=== PATIENT | male | born 1990 | race American Indian/Alaskan Native ===

== ENCOUNTER 2018-10-10 14:57 | Emergency (ER) | payer SELFPAY ==
[2018-10-10 15:11] VITALS: BP 132/83
[2018-10-10 16:23] LABS: Color,Urine Yellow (Yellow)
--- NOTE | 2018-10-10 16:23 | Emergency Department Report ---
ED Dizziness HPI - General Chief Complaint: Back Pain/Injury Stated Complaint: CHEST PAIN/HEADACHE/LOWER BACK Time Seen by Provider: 10/10/18 15:54 Source: patient Mode of arrival: Ambulatory Limitations: No Limitations - History of Present Illness Initial Comments: Mr. Moreno is a very pleasant healthy 28-year-old male who has had chest pain lightheadedness and fatigue for the last 2 months. He's had intermittent mild left sided chest pain nondescript quality. He also has mild lower back pain. +frequent urination. 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 He also smokes one pack of cigarettes per day. He drinks too many caffeinated sports drinks according to his report. He drinks a fifth of alcohol every other day. Family history includes 2 grandfathers of lung cancer. No known history of diabetes. He has worked ten-day straight days including 15 hour work days. MD Complaint: lightheadedness -: Gradual, month(s) (2) Timing: gradual onset Description: lightheadedness Severity: mild Improves With: rehydration, rest Associated Symptoms: chest pain, malaise - Related Data Allergies Allergy/AdvReac Type Severity Reaction Status Date / Time No Known Allergies Allergy Verified 10/10/18 15:07 ED Review of Systems ROS: Stated complaint: CHEST PAIN/HEADACHE/LOWER BACK Other details as noted in HPI Comment: All other systems reviewed and negative Constitutional: malaise. denies: fever Cardiovascular: chest pain Musculoskeletal: back pain ED Past Medical Hx - Past Medical History Previous Medical History?: No - Surgical History Past Surgical History?: No - Family History Family history: cancer - Social History Smoking Status: Current Every Day Smoker Substance Use Type: Alcohol ED Physical Exam - General Limitations: No Limitations General appearance: alert, in no apparent distress - Head Head exam: Present: atraumatic, normocephalic - Eye Eye exam: Present: normal appearance - ENT ENT exam: Present: mucous membranes moist - Neck Neck exam: Present: normal inspection, full ROM. Absent: tenderness, meningismus - Respiratory Respiratory exam: Present: normal lung sounds bilaterally. Absent: respiratory distress, wheezes, rales - Cardiovascular Cardiovascular Exam: Present: regular rate, normal rhythm, normal heart sounds. Absent: systolic murmur, diastolic murmur, rubs, gallop - GI/Abdominal GI/Abdominal exam: Present: soft, normal bowel sounds. Absent: distended, tenderness, guarding, rebound - Rectal Rectal exam: Present: deferred - Extremities Exam Extremities exam: Present: normal inspection - Back Exam Back exam: Present: normal inspection - Neurological Exam Neurological exam: Present: alert, oriented X3 - Psychiatric Psychiatric exam: Present: normal affect, normal mood - Skin Skin exam: Present: warm, dry, intact, normal color. Absent: rash ED Course Vital Signs 10/10/18 15:07 Temperature 98.2 F Pulse Rate 88 Respiratory 18 Rate Blood Pressure 132/83 O2 Sat by Pulse 99 Oximetry ED Medical Decision Making - EKG Data EKG shows normal: sinus rhythm, axis, intervals, QRS complexes, ST-T waves Rate: normal - EKG Data Interpretation: normal EKG - Medical Decision Making 1. Intermittent non-descriptive chest pain for the past 2 months atypical for ACS. I do not suspect pulmonary embolism, PTX pneumonia or pericarditis. I suspect ectopy PVC or adverse effect of Adderall, caffeinated sports drinks even tobacco abuse. I have given extensive verbal education and counseling modify lifestyle. Unfortunately he cycles sympathomimetic substances in the AM with sedating alcohol in the evening which is a very frequent practice for a young hardworking individual. I have attempted to explain the adverse effects of this cycling including chronic fatigue, mood changes, chest pain and dehydration. 2. lightheadedness fatigue as discussed above 3. lower back pain, lumbar strain due to heavy construction work As a young 28 year old male, he promptly needs to make changes for a healthier lifestyle. I do not detect a life or limb threatening condition at this juncture. Vitals signs normal Normal EKG. I review urinalysis. Contaminated sample without brasher abnormality. Critical care attestation.: If time is entered above; I have spent that time in minutes in the direct care of this critically ill patient, excluding procedure time. ED Disposition Clinical Impression: Fatigue, Tobacco abuse, Caffeine abuse, Alcohol use disorder Disposition: -01 TO HOME OR SELFCARE Is pt being admited?: No Does the pt Need Aspirin: No Condition: Stable Instructions: Chest Pain (ED), How to Stop Smoking (ED), At-Risk Alcohol Use (ED) Referrals: [facility] [Outside] - [place]
[2018-10-10 16:24] LABS: Bacteria,Urine 1+ /HPF (Negative); Bilirubin,Urine NEG (Negative); Blood,Urine NEG (Negative); Mucus,Urine FEW /HPF; Protein,Urine <15 mg/dL mg/dL (Negative); Urobilinogen,Urine < 2.0 mg/dL (<2.0)
== END 2018-10-10 17:05 | disposition home or self-care (01) ==
LOC: ED 14:57
DX: R53.83 Other fatigue (principal); Z72.0 Tobacco use; F15.10 Other stimulant abuse, uncomplicated; F17.200 Nicotine dependence, unspecified, uncomplicated
CPT/HCPCS: 81001; 93005; 93010; 99283